=== PATIENT | male | born 1985 | race Caucasian/White ===

== ENCOUNTER 2018-04-13 03:34 | Emergency (ER) | payer OTHER ==
[2018-04-13 03:52] VITALS: BP 132/76; PULSE 86; TEMP 98.3; BMI 33.2
[2018-04-13] MEDS ORDERED: TETANUS AND DIPHTHERIA TOXOID 0.5 ML DISP.SYRIN IM ONE (03:56)
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
== END 2018-04-13 05:09 | disposition home or self-care (01) ==
LOC: JER 03:34
PROC: 3E0234Z Introduction of Serum, Toxoid and Vaccine into Muscle, Percutaneous Approach (ICD-10-PCS; principal; 2018-04-13)
DX: S60.511A Abrasion of right hand, initial encounter (principal); Y35.891A Legal intervention involving other specified means, law enforcement official injured, initial encounter; Y93.89 Activity, other specified; Y92.9 Unspecified place or not applicable; Y99.0 Civilian activity done for income or pay
CPT/HCPCS: 99282-25

== ENCOUNTER 2018-04-14 05:22 | Emergency (ER) | payer OTHER ==
[2018-04-14 05:38] VITALS: BP 128/85; PULSE 70; TEMP 98; BMI 27.8
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
== END 2018-04-14 06:11 | disposition home or self-care (01) ==
LOC: JER 05:22
DX: S61.011A Laceration without foreign body of right thumb without damage to nail, initial encounter (principal); V49.9XXA Car occupant (driver) (passenger) injured in unspecified traffic accident, initial encounter; Y93.89 Activity, other specified; Y92.410 Unspecified street and highway as the place of occurrence of the external cause
CPT/HCPCS: 99283-25

== ENCOUNTER 2018-08-07 05:47 | Emergency (ER) | payer OTHER ==
[2018-08-07] MEDS ORDERED: IBUPROFEN 400 MG TABLET (FP) PO ONE ×2 (05:54→05:58)
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
[2018-08-07 06:18] VITALS: BP 123/95; PULSE 90; TEMP 97.9; BMI 29.9
== END 2018-08-07 06:19 | disposition home or self-care (01) ==
LOC: JER 05:47
DX: M25.561 Pain in right knee (principal)
CPT/HCPCS: 73562-TC-RT-FY; 99283-25

== ENCOUNTER 2018-09-16 00:34 | Emergency (ER) | payer OTHER ==
[2018-09-16 00:44] VITALS: BP 133/92; PULSE 92; TEMP 97.6; BMI 27.1
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
[2018-09-16] MEDS ORDERED: IBUPROFEN 600 MG TABLET (FP) PO ONE ×3 (01:48→01:55)
[2018-09-16] MEDS ORDERED: METHOCARBAMOL 500 MG TABLET PO ONE (01:48)
[2018-09-16] MEDS ORDERED: METHOCARBAMOL 500 MG TABLET ONE (01:54)
== END 2018-09-16 02:17 | disposition home or self-care (01) ==
LOC: JER 00:34
DX: M62.830 Muscle spasm of back (principal); V43.52XA Car driver injured in collision with other type car in traffic accident, initial encounter; Y92.414 Local residential or business street as the place of occurrence of the external cause; Y93.89 Activity, other specified; Y99.8 Other external cause status; J45.909 Unspecified asthma, uncomplicated
CPT/HCPCS: 99283-25

== ENCOUNTER 2022-11-08 19:37 | Emergency (ER) | payer BC, OTHER ==
[2022-11-08 19:54] VITALS: BP 118/73; PULSE 84; RESP 16; TEMP 98.6; BMI 29.9
[2022-11-08] MEDS ORDERED: predniSONE 20 MG TABLET (UD) PO ONE (20:18)
[2022-11-08] MEDS ORDERED: predniSONE 20 MG TABLET (UD) ONE (20:20)
== END 2022-11-08 20:26 | disposition home or self-care (01) ==
LOC: FER 19:37
DX: L23.7 Allergic contact dermatitis due to plants, except food (principal)
CPT/HCPCS: 99283-25

== ENCOUNTER 2023-01-03 03:59 | Emergency (ER) | payer OTHER, BC ==
[2023-01-03 04:09] VITALS: BP 118/86; PULSE 72; RESP 16; TEMP 98.9; BMI 29.2
[2023-01-03] MEDS ORDERED: AMOX TR/POT CLAV 875MG/125MG TABLETS (FP) PO ONE (04:17)
[2023-01-03] MEDS ORDERED: DIPHTH,PERTUSS(ACELL),TET 0.5 ML DISP.SYRIN IM ONE ×2 (04:26→04:28)
[2023-01-03] MEDS ORDERED: AMOX TR/POT CLAV 875MG/125MG TABLETS (FP) ONE (04:26)
== END 2023-01-03 04:35 | disposition home or self-care (01) ==
LOC: FER 03:59
PROC: 3E0234Z Introduction of Serum, Toxoid and Vaccine into Muscle, Percutaneous Approach (ICD-10-PCS; principal; 2023-01-03)
DX: S51.851A Open bite of right forearm, initial encounter (principal); W54.0XXA Bitten by dog, initial encounter
CPT/HCPCS: 90715; 99283-25

== ENCOUNTER 2024-03-20 02:04 | Emergency (ER) | payer BC, OTHER ==
[2024-03-20 02:17] VITALS: BP 134/87; PULSE 80; RESP 16; TEMP 97.7; BMI 29.9
[2024-03-20] MEDS ORDERED: IBUPROFEN 600 MG TABLET (FP) PO ONE (03:54)
== END 2024-03-20 04:06 | disposition home or self-care (01) ==
LOC: FER 02:04
DX: S50.02XA Contusion of left elbow, initial encounter (principal); S50.812A Abrasion of left forearm, initial encounter; S60.512A Abrasion of left hand, initial encounter; W01.0XXA Fall on same level from slipping, tripping and stumbling without subsequent striking against object, initial encounter; Y35.811A Legal intervention involving manhandling, law enforcement official injured, initial encounter
CPT/HCPCS: 73070-TC-LT-FY; 99283-25